=== PATIENT | male | born 1990 | race Caucasian/White ===

== ENCOUNTER 2017-10-22 15:45 | Emergency (ER) | payer OTHER ==
[2017-10-22 15:54] VITALS: BP 133/80; PULSE 78; RESP 18; TEMP 98.1; O2SAT 94
[2017-10-22] MEDS ORDERED: ACETAMINOPHEN 500 MG TAB ONE (16:18)
[2017-10-22] MEDS ORDERED: ACETAMINOPHEN 500 MG TAB PO ONE (16:19)
--- NOTE | 2017-10-22 16:19 | EDPHY ---
H & P Time Seen by Provider: 10/22/17 16:00 HPI/ROS: CHIEF COMPLAINT: Evaluation after head injury HISTORY OF PRESENT ILLNESS: Fell skiing yesterday at 2:00 p.m. [place] [employer] [place] wearing a helmet. Did not lose consciousness. Presents with a headache which is 4 5/10, light hurts his eyes and he has some nausea but no vomiting. Apparently he has been having some short-term concentration issues today per his coworkers. Does not have ataxia. Is able to answer questions appropriately. Does not have weakness or numbness in extremities. No neck pain. No seizure activity at the time of the injury. REVIEW OF SYSTEMS: Eye: no change in vision or double vision ENT: no sore throat or tinnitus or ear symptoms Cardiac: no chest pain or syncope Pulmonary: no cough or SOB Abdomen: no vomiting, diarrhea, abdominal pain Musculoskeletal: no back pain or neck pain, left shoulder pain which he thinks is bruised Skin: no rash Neuro: HPI, no ataxia or vertigo. Room is not spinning. Constitutional: no fever : no urinary symptoms A comprehensive 10 point review of systems is otherwise negative aside from elements mentioned in the history of present illness. PAST MEDICAL HISTORY: Negative Social history: Works at [employer], here with 2 coworkers General Appearance: Alert and conversant, cooperative. Eyes: No scleral icterus. Pupils equal round reactive and extraocular motion intact. ENT, Mouth: Normal mucous membranes. No hemotympanum. Respiratory: Normal respiratory effort, breath sounds equal, lungs are clear to auscultation. Cardiovascular: Regular rate and rhythm. Gastrointestinal: Abdomen is soft and non tender. Specifically nontender over the liver or the spleen. Neurological: Alert, face symmetric, normal motor and sensory in extremities. Normal [id number] bilaterally, no pronator drift, not ataxic. Negative Romberg. With fluent speech and normal mental status, not confused on my evaluation. Skin: Warm and dry, no rashes. Musculoskeletal: Tender at the left AC, good range of motion of the left shoulder, no clavicular tenderness medially. No cervical thoracic or lumbar spine midline tenderness to palpation. Psychiatric: Not agitated. Emergency Department course/MDM: Patient is not anticoagulated, did not have seizure or loss of consciousness, does not have severe headache. Does not have neurologic deficit or evidence of skull fracture on exam here. Serial observation as an outpatient and symptomatic care discussed and consented with patient. We discussed pros and cons of CT head imaging, decided together that the best course of action at this time is symptomatic care and observation by his friends and coworkers. Patient states he is comfortable with that. I did advise him to get a shoulder x-ray today which he declined. He did get warned by me that he continues to have symptoms he needs to follow-up with referral orthopedist because he could have a clavicle fracture or an AC injury. Smoking Status: Current some day smoker Constitutional: Initial Vital Signs Temperature (C) 36.7 C 10/22/17 15:50 Heart Rate 78 10/22/17 15:50 Respiratory Rate 18 10/22/17 15:50 Blood Pressure 133/80 H 10/22/17 15:50 O2 Sat (%) 94 10/22/17 15:50 O2 Delivery Mode Room Air Allergies/Adverse Reactions: morphine Allergy (Verified 10/22/17 15:50) Home Medications: Medication Instructions Recorded NK [No Known Home Meds] 10/22/17 MDM/Departure - MDM Medications Given: Discontinued Medications Acetaminophen (Tylenol) 1,000 mg PO EDNOW ONE Stop: 10/22/17 16:20 Last Admin: 10/22/17 16:30 Dose: 1,000 mg Differential Diagnosis: Differential diagnosis considered for head injury including but not limited to concussion, skull fracture, intraparenchymal contusion, subarachnoid, subdural and epidural hematoma. - Depart Disposition: Home, Routine, Self-Care Clinical Impression: Contusion of left shoulder, initial encounter Concussion Qualifiers: Encounter type: initial encounter Loss of consciousness presence/duration: without LOC Qualified Code(s): S06.0X0A - Concussion without loss of consciousness, initial encounter Condition: Good Instructions: Concussion (ED) Additional Instructions: Please see follow-up orthopedic surgeon next week if left shoulder is still hurting, consider x-ray. No contact sports until cleared for full activity by follow-up primary care physician Dr. Ani Hernández. Stand Alone Forms: Work Limited Duty Referrals: Ulisses Morgan MD [Medical Doctor] - As per Instructions Ani Hernández MD [[facility] [place] Primary Care Provider] - As per Instructions
== END 2017-10-22 16:39 | disposition home or self-care (01) ==
DX: S06.0X0A Concussion without loss of consciousness, initial encounter (principal); S40.012A Contusion of left shoulder, initial encounter; F17.200 Nicotine dependence, unspecified, uncomplicated; V00.321A Fall from snow-skis, initial encounter; Y92.89 Other specified places as the place of occurrence of the external cause; Y93.23 Activity, snow (alpine) (downhill) skiing, snowboarding, sledding, tobogganing and snow tubing